=== PATIENT | female | born 1990 | race African-American/Black ===

== ENCOUNTER 2023-11-06 23:21 | Emergency (ER) | payer SELFPAY ==
[~2023-11-06] VITALS: Ht 170.2 cm; Wt 74.8 kg
[2023-11-06 23:27] VITALS: BP 110/69; PULSE 90; RESP 18; TEMP 97.3; O2SAT 99
[2023-11-07] VITALS: BP 110/69; PULSE 90; RESP 18; TEMP 97.3; O2SAT 99
== END 2023-11-07 | disposition left against medical advice (07) ==
LOC: MED 23:21
DX: F10.20 Alcohol dependence, uncomplicated (principal); Z53.21 Procedure and treatment not carried out due to patient leaving prior to being seen by health care provider; V89.2XXA Person injured in unspecified motor-vehicle accident, traffic, initial encounter; Y93.89 Activity, other specified; Y92.411 Interstate highway as the place of occurrence of the external cause; Y99.8 Other external cause status